=== PATIENT | female | born 2000 | race Caucasian/White ===

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

== ENCOUNTER 2018-03-14 20:11 | Emergency (ER) | payer BC ==
--- NOTE | 2018-03-14 20:21 | EDPHY ---
H & P Stated Complaint: LOW ABD PAIN AND BLOOD IN STOOL X1 TODAY, DENIES UTI Time Seen by Provider: 03/14/18 20:21 HPI/ROS: CHIEF COMPLAINT: Resolved abdominal pain HISTORY OF PRESENT ILLNESS: The patient presents to the ED from urgent care after she experienced abdominal pain earlier today. She did report a brief episode of mucus and scant blood in a bowel movement earlier today. That has resolved. She currently denies any complaints of acute pain. She denies any symptoms of dysuria. She denies significant past medical history. She denies significant past surgical history. REVIEW OF SYSTEMS: A comprehensive 10 point review of systems is otherwise negative aside from elements mentioned in the history of present illness. Source: Patient - Personal History LMP (Females 10-55): 8-14 Days Ago Current Tetanus/Diphtheria Vaccine: Yes Current Tetanus Diphtheria and Acellular Pertussis (TDAP): Yes - Medical/Surgical History Hx Asthma: Yes Hx Chronic Respiratory Disease: No Hx Diabetes: No Hx Cardiac Disease: No Hx Renal Disease: No Hx Cirrhosis: No Hx Alcoholism: No Hx HIV/AIDS: No Hx Splenectomy or Spleen Trauma: No Other PMH: asthma - Social History Smoking Status: Never smoked - Physical Exam Exam: General Appearance: Alert, no distress Eyes: Pupils equal and round no pallor or injection ENT, Mouth: Mucous membranes moist Respiratory: There are no retractions, lungs are clear to auscultation Cardiovascular: Regular rate and rhythm Gastrointestinal: Abdomen is soft and nontender, no masses, bowel sounds normal Neurological: A&O, normal motor function, normal sensory exam, normal cranial nerves Skin: Warm and dry, no rashes Musculoskeletal: Neck is supple nontender Extremities: symmetrical, full range of motion Psychiatric: Patient is oriented X 3, there is no agitation Constitutional: Initial Vital Signs Temperature (C) 37.3 C 03/14/18 20:13 Heart Rate 76 03/14/18 20:13 Respiratory Rate 18 03/14/18 20:13 Blood Pressure 140/102 H 03/14/18 20:13 O2 Sat (%) 96 03/14/18 20:13 O2 Delivery Mode Room Air Allergies/Adverse Reactions: amoxicillin Allergy (Verified 03/14/18 20:15) penicillin G Allergy (Verified 03/14/18 20:15) Home Medications: Medication Instructions Recorded Albuterol Sulfate [Ventolin Hfa] 18 gm IH 03/14/18 Beclomethasone Qvar 80 [Qvar 80 1 inh IH BID 03/14/18 Redihaler (*)] Medical Decision Making ED Course/Re-evaluation: The patient presents to the ED after an episode of resolved abdominal pain with scant blood in mucus in her stool. Find her abdominal examination to be benign. There is no clinical evidence of appendicitis, peritonitis, suspected perforation or abscess. The patient's laboratory studies are within normal limits. Her test is negative. At this point time I believe she is likely experiencing a mild enteritis. I do not feel that further workup is indicated based upon her mild symptoms. The patient will be discharged home with instructions to return to the ED for worsening symptoms, increasing pain, vomiting or fever. Differential Diagnosis: Differential diagnosis considered includes appendicitis, perforation, ectopic , peritonitis, colitis - Data Points Laboratory Results: Laboratory Results 03/14/18 20:30 03/14/18 20:30 03/14/18 03/14/18 03/14/18 20:30 20:30 20:30 WBC 11.32 10^3/uL H 10^3/uL (3.80-9.50) RBC 4.93 10^6/uL 10^6/uL (4.18-5.33) Hgb 15.1 g/dL g/dL (12.6-16.3) Hct 44.4 % % (38.0-47.0) MCV 90.1 fL fL (81.5-99.8) MCH 30.6 pg pg (27.9-34.1) MCHC 34.0 g/dL g/dL (32.4-36.7) RDW 12.5 % % (11.5-15.2) Plt Count 372 10^3/uL 10^3/uL (150-400) MPV 10.1 fL fL (8.7-11.7) Neut % (Auto) 63.7 % % (39.3-74.2) Lymph % (Auto) 24.5 % % (15.0-45.0) [place] % (Auto) 9.5 % % (4.5-13.0) Eos % (Auto) 1.1 % % (0.6-7.6) Baso % (Auto) 0.8 % % (0.3-1.7) Nucleat RBC Rel Count 0.0 % % (0.0-0.2) Absolute Neuts (auto) 7.22 10^3/uL H 10^3/uL (1.70-6.50) Absolute Lymphs (auto) 2.77 10^3/uL 10^3/uL (1.00-3.00) Absolute Monos (auto) 1.07 10^3/uL H 10^3/uL (0.30-0.80) Absolute Eos (auto) 0.13 10^3/uL 10^3/uL (0.03-0.40) Absolute Basos (auto) 0.09 10^3/uL 10^3/uL (0.02-0.10) Absolute Nucleated RBC 0.00 10^3/uL 10^3/uL (0-0.01) Immature Gran % 0.4 % % (0.0-1.1) Immature Gran # 0.04 10^3/uL 10^3/uL (0.00-0.10) Sodium 141 mEq/L mEq/L (135-145) Potassium 3.5 mEq/L mEq/L (3.3-5.0) Chloride 100 mEq/L mEq/L (97-110) Carbon Dioxide 29 mEq/l mEq/l (22-31) Anion Gap 12 mEq/L mEq/L (8-16) BUN 12 mg/dL mg/dL (7-23) Creatinine 0.7 mg/dL mg/dL (0.6-1.0) Estimated GFR > 60 Glucose 94 mg/dL mg/dL (70-100) Calcium 9.6 mg/dL mg/dL (8.5-10.4) Beta HCG, Qual NEGATIVE Departure - Departure Disposition: Home, Routine, Self-Care Clinical Impression: Enteritis Condition: Good Instructions: Enteritis (ED) Additional Instructions: 1. At this point time I believe your symptoms are likely secondary to a mild viral infection which should pass without the need for additional treatment. 2. Please return to the ED immediately for increasing pain, heavy bleeding, fever, vomiting or other concerns. 3. Please follow up with your primary care provider as needed. You have also been given the number of our on-call equipment scheduler if you continue to have mild intermittent symptoms. 4. Sometimes we are unable to diagnose an obvious cause of abdominal pain in the Emergency Department. Based upon our evaluation today, I believe your having a mild viral infection. Because more serious conditions can be difficult to diagnose early in the course of their presentation, we ask that you return to the Emergency Department in 8-12 hours for a recheck if you are still having pain. This is necessary to exclude the development of a more serious condition such as appendicitis or other intra-abdominal emergency. In the event your pain markedly increases before that time or you develop intractable vomiting or fever return to the Emergency Department immediately. Referrals: STEFANIE SEXTON [Other] - As per Instructions Abelardo Frye MD [Medical Doctor] - As per Instructions
[2018-03-14 21:18] LABS: PLATELET COUNT 372 10^3/uL (150-400)
[2018-03-14 21:29] VITALS: BP 112/74
== END 2018-03-14 21:28 | disposition home or self-care (01) ==
DX: K52.9 Noninfective gastroenteritis and colitis, unspecified (principal)